=== PATIENT | female | born 1960 | race American Indian/Alaskan Native ===

== ENCOUNTER 2016-05-09 20:23 | Emergency (ER) | payer MEDICARE ==
[2016-05-09 21:21] VITALS: BP 129/77
[2016-05-09 23:19] LABS: Bacteria,Urine 1+ /HPF (Negative); Bilirubin,Urine NEG (Negative); Blood,Urine SM (Negative); Ketones,Urine NEG (Negative); Leukocyte Esterase,Urine NEG (Negative); Nitrite,Urine NEG (Negative); Protein,Urine <15 mg/dL mg/dL (Negative); Urobilinogen,Urine < 2.0 mg/dL (<2.0)
[2016-05-09 23:22] LABS: WBC,Urine < 1.0 /HPF (0.0-6.0)
--- NOTE | 2016-05-11 12:10 | ED Elopement Review ---
ED Pt Elopement review - Results review Lab results: Laboratory Tests 05/09/16 22:37 Urine Color Straw Urine Turbidity Clear Urine pH 6.0 Ur Specific [place] 1.003 Urine Protein <15 mg/dl Urine Glucose (UA) Neg Urine Ketones Neg Urine Blood Sm Urine Nitrite Neg Urine Bilirubin Neg Urine Urobilinogen < 2.0 Ur Leukocyte Esterase Neg Urine WBC (Auto) < 1.0 Urine RBC (Auto) 1.0 Urine Bacteria (Auto) 1+ - Call Back decision Pt Call Back Decision: No action required
== END 2016-05-09 22:47 | disposition left against medical advice (07) ==
LOC: ED 20:23
DX: R10.30 Lower abdominal pain, unspecified (principal); R19.7 Diarrhea, unspecified; M79.89 Other specified soft tissue disorders; Z53.21 Procedure and treatment not carried out due to patient leaving prior to being seen by health care provider
CPT/HCPCS: 81001

== ENCOUNTER 2018-10-16 19:07 | Emergency (ER) | payer MEDICARE ==
[2018-10-16] MEDS ORDERED: SOLU-Medrol IV ONE (19:25)
--- NOTE | 2018-10-16 19:42 | Emergency Department Report ---
HPI - General Chief Complaint: Allergic Reaction Time Seen by Provider: 10/16/18 19:24 - HPI HPI: Mrs. Candelario is a very pleasant 88-year-old female with history of hypertension who presents with upper lip swelling since yesterday evening. She takes lisin opril and amlodipine for blood pressure control. She denies tongue or throat swelling. Denies shortness of breath. Denies skin itching or hives. Gradual onset of symptoms and yesterday. Swelling has not changed in size. Swelling isolated to the upper lip. ED Past Medical Hx - Past Medical History Previous Medical History?: Yes Hx Hypertension: Yes Hx Diabetes: Yes - Surgical History Additional Surgical History: - Social History Smoking Status: Current Every Day Smoker Substance Use Type: None - Medications Home Medications: Home Medications Medication Instructions Recorded Confirmed Last Taken Type Lisinopril 10 mg PO DAILY 02/21/15 02/21/15 02/21/15 History Simvastatin (Nf) [Zocor TAB] 20 mg PO QHS 02/21/15 02/21/15 02/21/15 History metFORMIN [Glucophage] 500 mg PO BID 02/21/15 02/21/15 02/21/15 History Acetaminophen/Codeine [Tylenol #3] 1 tab PO Q6H PRN #14 tab 01/12/16 Unknown Rx ED Review of Systems ROS: Stated complaint: UPPER LIP SWOLLEN Other details as noted in HPI Comment: All other systems reviewed and negative Constitutional: denies: fever, malaise Respiratory: denies: cough Cardiovascular: denies: chest pain Physical Exam - Physical Exam General: General: Well-appearing, no acute distress HEENT: Normocephalic atraumatic pupils equal round and reactive to light a nicteric sclera Nose: no rhinorrhea Oropharynx: Edematous upper lip normal tongue size normal lower lip size Clear mucous membranes no lesions Neck: supple, no meningismus no swelling of the neck or submandibular region Chest: Clear to auscultation bilaterally no rales rhonchi no wheezes Cardiac: Regular rate and rhythm no murmurs no rubs no gallops Abdomen: Soft nontender nondistended positive bowel sounds no guarding Extremities: No cyanosis no clubbing no edema Neuro: Moves all extremities 4, no gross deficits Psychiatric: Alert and oriented 4 normal affect normal judgment normal insight ED Medical Decision Making - Medical Decision Making Mild isolated angioedema involving the upper lobe MAGED inhibitor induced. Mrs. Tuttle since 2 stopped taking lisinopril. I will increase her amlodipine dose from 2.5-5 mg for pressure control. She received 1 dose IV steroids in the ED. Discharged home in stable condition. Critical care attestation.: If time is entered above; I have spent that time in minutes in the direct care of this critically ill patient, excluding procedure time. ED Disposition Clinical Impression: MAGED inhibitor-aggravated angioedema Disposition: TO HOME OR SELFCARE Is pt being admited?: No Does the pt Need Aspirin: No Condition: Stable Instructions: Angioedema (ED) Additional Instructions: Please stop taking lisinopril. Any medication in this class of drugs will cause lip swelling.
[2018-10-16 20:37] VITALS: BP 111/63
== END 2018-10-16 20:37 | disposition home or self-care (01) ==
LOC: ED 19:07
DX: R22.0 Localized swelling, mass and lump, head (principal); T46.5X5A Adverse effect of other antihypertensive drugs, initial encounter; I10 Essential (primary) hypertension; E11.9 Type 2 diabetes mellitus without complications; F17.200 Nicotine dependence, unspecified, uncomplicated; Z88.6 Allergy status to analgesic agent; Z79.899 Other long term (current) drug therapy; X58.XXXA Exposure to other specified factors, initial encounter; Y93.89 Activity, other specified; Y92.89 Other specified places as the place of occurrence of the external cause; Y99.8 Other external cause status
CPT/HCPCS: 96374; 99282; J2930

== ENCOUNTER 2020-05-07 18:26 | Emergency (ER) | payer MEDICARE ==
[2020-05-07 19:39] VITALS: BP 139/86
[2020-05-07] MEDS ORDERED: IBUPROFEN 600 MG TAB PO ONE (22:44)
[2020-05-07] MEDS ORDERED: ONDANSETRON 4 MG ODT TAB PO ONE (22:44)
[2020-05-07] MEDS ORDERED: traMADol 50 MG TAB PO ONE (22:44)
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
== END 2020-05-08 00:05 | disposition home or self-care (01) ==
LOC: ED 18:26
DX: S93.401A Sprain of unspecified ligament of right ankle, initial encounter (principal); T23.101A Burn of first degree of right hand, unspecified site, initial encounter; I10 Essential (primary) hypertension; E11.9 Type 2 diabetes mellitus without complications; F17.200 Nicotine dependence, unspecified, uncomplicated; Z98.890 Other specified postprocedural states; Z79.84 Long term (current) use of oral hypoglycemic drugs; Z79.899 Other long term (current) drug therapy; Z88.8 Allergy status to other drugs, medicaments and biological substances; X50.1XXA Overexertion from prolonged static or awkward postures, initial encounter; Y93.89 Activity, other specified; Y92.89 Other specified places as the place of occurrence of the external cause; Y99.8 Other external cause status
CPT/HCPCS: 99282; Q0162

== ENCOUNTER 2020-10-14 19:13 | Emergency (ER) | payer MEDICARE ==
[2020-10-15] MEDS ORDERED: IBUPROFEN 600 MG TAB PO ONE (02:44)
[2020-10-15] MEDS ORDERED: ACETAMINOPHEN 500 MG TAB PO ONE (02:44)
--- NOTE | 2020-10-15 02:48 | Emergency Department Report ---
ED General Adult HPI - General Chief complaint: Dental/Oral Stated complaint: TOOTH PAIM/MOUTH SWELLING Time Seen by Provider: 10/15/20 02:36 Source: patient Mode of arrival: Ambulatory Limitations: No Limitations - History of Present Illness Initial comments: 60-year-old female patient with history of diabetes and hypertension presents to the emergency department with complaints of dental pain starting yesterday. No preceding fall, trauma, injury. Patient states she has not seen a dentist in several years. Took aspirin with limited relief. Pain is localized to the right upper molar. Denies fever, chills, sore throat, dysphagia, hoarseness, neck stiffness. Denies all other complaints at this time. Severity scale (0 -10): 3 - Related Data Home Medications Medication Instructions Recorded Confirmed Last Taken Lisinopril 10 mg PO DAILY 02/21/15 02/21/15 02/21/15 Simvastatin (Nf) [Zocor TAB] 20 mg PO QHS 02/21/15 02/21/15 02/21/15 metFORMIN [Glucophage] 500 mg PO BID 02/21/15 02/21/15 02/21/15 Previous Rx's Medication Instructions Recorded Last Taken Type Acetaminophen/Codeine [Tylenol #3] 1 tab PO Q6H PRN #14 tab 01/12/16 Unknown Rx amLODIPine 5 mg PO DAILY 30 Days #30 tab 10/16/18 Unknown Rx Naproxen 500 mg PO Q12H PRN #24 tablet 05/07/20 Unknown Rx Silver Sulfadiazine [Silvadene] 25 gm TP BID #1 cream..g. 05/07/20 Unknown Rx traMADoL [Ultram] 50 mg PO Q6HR PRN #12 tablet 05/07/20 Unknown Rx Naproxen 250 mg PO BID #20 tablet 10/15/20 Unknown Rx Nystas/Diphen/Xyl Visc/Mylanta 30 ml MM Q4H PRN #1 bottle 10/15/20 Unknown Rx [Magic Mouthwash] Penicillin Vk [Veetids TAB] 500 mg PO QID 7 Days tablet 10/15/20 Unknown Rx Allergies Allergy/AdvReac Type Severity Reaction Status Date / Time morphine AdvReac Itching Verified 02/21/15 11:48 ED Review of Systems ROS: Stated complaint: TOOTH PAIM/MOUTH SWELLING Other details as noted in HPI Other: GENERAL: Negative for fever. ENT: Positive for dental pain. CARDIOVASCULAR: Negative for chest pain. PULMONARY: Negative for shortness of breath. GASTROINTESTINAL: Negative for abdominal pain. MUSCULOSKELETAL: Negative for back pain. NEUROLOGICAL: Negative for headache. INTEGUMENTARY: Negative for rash. ED Past Medical Hx - Past Medical History Previous Medical History?: Yes Hx Hypertension: Yes Hx Diabetes: Yes Additional medical history: Hyperlipidemia - Surgical History Past Surgical History?: Yes Additional Surgical History: - Social History Smoking Status: Current Every Day Smoker Substance Use Type: None - Medications Home Medications: Home Medications Medication Instructions Recorded Confirmed Last Taken Type Lisinopril 10 mg PO DAILY 02/21/15 02/21/15 02/21/15 History Simvastatin (Nf) [Zocor TAB] 20 mg PO QHS 02/21/15 02/21/15 02/21/15 History metFORMIN [Glucophage] 500 mg PO BID 02/21/15 02/21/15 02/21/15 History Acetaminophen/Codeine [Tylenol #3] 1 tab PO Q6H PRN #14 tab 01/12/16 Unknown Rx amLODIPine 5 mg PO DAILY 30 Days #30 tab 10/16/18 Unknown Rx Naproxen 500 mg PO Q12H PRN #24 tablet 05/07/20 Unknown Rx Silver Sulfadiazine [Silvadene] 25 gm TP BID #1 cream..g. 05/07/20 Unknown Rx traMADoL [Ultram] 50 mg PO Q6HR PRN #12 tablet 05/07/20 Unknown Rx Naproxen 250 mg PO BID #20 tablet 10/15/20 Unknown Rx Nystas/Diphen/Xyl Visc/Mylanta 30 ml MM Q4H PRN #1 bottle 10/15/20 Unknown Rx [Magic Mouthwash] Penicillin Vk [Veetids TAB] 500 mg PO QID 7 Days tablet 10/15/20 Unknown Rx ED Physical Exam - General Limitations: No Limitations - Other Other exam information: General: Awake, appropriately interactive, no acute distress. Dental: Oral mucosa is moist. Tenderness to palpation along the right upper molar. The gingiva appear normal. No fluctuance or evidence of periapical abscess. Sublingual, submental, and submandibular spaces all soft, without edema. There is tenderness and minimal soft tissue swelling along the distribution of the right maxilla without evidence for maxillary or buccal space abscess. No trismus. Patient is speaking in full sentences and handling secretions without difficulty. Neck: Supple. Full range of motion intact. Cardiovascular: Normal peripheral perfusion. Pulmonary: No respiratory distress. Patient is speaking normally without use of accessory muscles. Skin: No apparent rashes or lesions. Neurological: No facial asymmetry. Speech is clear. Follows commands. Patient is alert and oriented. Musculoskeletal: Moves all four extremities spontaneously with normal range of motion. Psych: Cooperative. Appropriate mood and affect. ED Course Vital Signs 10/15/20 10/15/20 10/15/20 01:05 02:57 03:21 Temperature 98.6 F Pulse Rate 84 Respiratory 18 16 16 Rate Blood Pressure 156/84 [Left] O2 Sat by Pulse 100 Oximetry 10/15/20 03:22 Temperature 98 F Pulse Rate 78 Respiratory 19 Rate Blood Pressure 204/117 [Left] O2 Sat by Pulse 100 Oximetry ED Medical Decision Making - Medical Decision Making Differential diagnosis including but not limited to: dental abscess, Ruben's angina, necrotizing gingivitis, dental caries Patient presents to the emergency department with complaints of nontraumatic dental pain. Patient is afebrile, hemodynamically stable, no respiratory distress, tolerating oral intake without difficulty, handling secretions without difficulty. No clinical evidence to suggest airway obstruction or systemic bacterial infection warranting further diagnostic work-up on an emergent basis at this time. Patient will be discharged home with prophylactic antibiotics, appropriate analgesics, and referral to dentist for close outpatient follow-up. Patient expressed understanding and is agreeable to plan of care. Strict return precautions provided. Of note, patient's blood pressure was noted to be elevated in the emergency department. Patient has a prior history of hypertension. She has not yet taking her blood pressure medication this morning. Patient specifically denies chest pain, shortness of breath, palpitations, syncope, headache, vision changes. Neurological exam is nonfocal and remainder of vital signs are stable. No clinical indication for further diagnostic work-up and/or initiation of antihypertensive therapy at this time per ACEP asymptomatic hypertension guidelines. Patient was encouraged to follow-up with primary care provider for blood pressure recheck. Lifestyle modifications recommended. Reminded to take her scheduled blood pressure medications upon returning home. History, exam, diagnostic testing, and current condition do not suggest worrisome pathology to warrant further testing, continued ED treatment, admission, or surgical evaluation at this point. Given the low probability of a significant medical illness, it would be more likely to result in harm than benefit to perform further testing at this stage. Discussed findings, presumptive diagnosis, need for follow-up and specific signs/symptoms that should prompt immediate return to the emergency department. Instructions were explained in detail to the patient in addition to giving written discharge information. Patient expressed understanding and was given the opportunity to ask questions, all of which were satisfactorily answered prior to discharge home. Critical care attestation.: If time is entered above; I have spent that time in minutes in the direct care of this critically ill patient, excluding procedure time. ED Disposition Clinical Impression: Odontalgia, History of hypertension Disposition: TO HOME OR SELFCARE Is pt being admited?: No Does the pt Need Aspirin: No Condition: Stable Instructions: Diet and Dental Disease Additional Instructions: Take Tylenol every 4 hours as needed for pain. Take Naprosyn twice daily with food as needed for pain. Use Magic Mouthwash as needed for pain. Take Penicillin with food as directed. Continue blood pressure medications as previously prescribed. Reduce your dietary sodium intake. Exercise daily. Follow-up with dentist this week. Call Saturday to schedule an appointment. See referral information below. Return to the emergency department immediately for new or worsening symptoms. Prescriptions: Nystas/Diphen/Xyl Visc/Mylanta [Magic Mouthwash] 30 ml MM Q4H PRN #1 bottle PRN Reason: dental pain Naproxen 250 mg PO BID #20 tablet Penicillin Vk [Veetids TAB] 500 mg PO QID 7 Days tablet Referrals: [facility] [Outside] - 3-5 Days [facility] [Outside] - 3-5 Days Time of Disposition: 02:48
[2020-10-15 03:23] VITALS: BP 204/117
== END 2020-10-15 03:25 | disposition home or self-care (01) ==
LOC: ED 19:13
DX: K08.89 Other specified disorders of teeth and supporting structures (principal); I10 Essential (primary) hypertension; E11.9 Type 2 diabetes mellitus without complications; F17.200 Nicotine dependence, unspecified, uncomplicated; Z98.890 Other specified postprocedural states; Z79.899 Other long term (current) drug therapy; Z88.8 Allergy status to other drugs, medicaments and biological substances
CPT/HCPCS: 99282

== ENCOUNTER 2021-02-27 19:35 | Emergency (ER) | payer MEDICARE ==
[2021-02-27 20:40] VITALS: BP 137/72
[2021-02-27] MEDS ORDERED: ASPIRIN 325 MG TAB PO ONE (21:10)
[2021-02-27] MEDS ORDERED: ACETAMINOPHEN 500 MG TAB PO ONE (21:10)
--- NOTE | 2021-02-27 21:12 | Event Note ---
ED Screening Note Date of service: 02/27/21 Time: 21:10 ED Screening Note: Patient is a 60-year-old -Citizen Of [place] female with a history of hypertension, llg-xrndmjg-mechhvwmd diabetes, hyperlipidemia, chronic osteoarthritis and heavy tobacco abuse who presents to the ED with complaint of posterior neck pain that radiates to her left shoulder with a significant headache that radiates from the occipital area to the parietal scalp intermittently for the last 1 month, worse in the last 3 days. Patient states that the pain in the neck makes the headache worse with blurry vision and nausea. Patient denies diaphoresis, fall, traumatic injury, dizziness, syncope, numbness and tingling or weakness of upper extremities bilaterally, shortness of breath, chest pain, nausea and vomiting or abdominal pain, change in vision or cough. This initial assessment/diagnostic orders/clinical plan/treatment(s) is/are subject to change based on patients health status, clinical progression and re- assessment by fellow clinical providers in the ED. Further treatment and workup at subsequent clinical providers discretion. Patient/guardian urged not to elope from the ED as their condition may be serious if not clinically assessed and managed. Initial orders include: EKG, troponin, CBC, CMP, chest x-ray, head CT scan without contrast
[2021-02-27] MEDS ORDERED: LIDOCAINE (4%) 40 MG/ML TOPICAL SOLN 50 ML BOTTLE TP ONE (21:54)
[2021-02-27] MEDS ORDERED: METOCLOPRAMIDE 10 MG TAB PO ONE (21:54)
--- NOTE | 2021-02-27 21:58 | Emergency Department Report ---
ED General Adult HPI - General Chief complaint: Headache Stated complaint: The muscles in the back of my neck hurt PUI?: No Time Seen by Provider: 02/27/21 21:22 Source: patient, RN notes reviewed, old records reviewed Mode of arrival: Ambulatory Limitations: No Limitations - History of Present Illness Initial comments: The patient was evaluated in the emergency department for symptoms described in the history of present illness. He/she was evaluated in the context of the global COVID-19 pandemic, which necessitated consideration that the patient might be at risk for infection with the virus that causes COVID-19. Institutional protocols and algorithms that pertain to the evaluation of patients at risk for COVID-19 are in a state of rapid change based on information released by regulatory bodies including the CDC and federal and state organizations. These policies and algorithms were followed during the patient's care in the emergency department. Please note that these policies, procedures and recommendations changed on a rapid basis. The patient is a 60-year-old female, who is right-hand dominant. Patient has a past medical history of body mass index of 37.3, arthritis, chronic pain, diabetes, hypertension and high cholesterol. The patient presents to the ER today with a primary complaint of nontraumatic, acute on chronic trapezius, and posterior cervical muscular pain, associated with occipital pain. This type of pain has been present for months, but it got worse over the past couple weeks. The patient denies fever, loss of taste and smell, loss of visual acuity, ataxia, tinnitus, vertigo, chest pain, abdominal pain or shortness of breath. The patient denies recent motor vehicle accident, and recent chiropractic manipulation. She states her outpatient primary care doctor has started her on gabapentin for "nerve pain." She came in today because the pain is now getting a little bit worse, and occasionally moves to the left shoulder. She denies weakness, numbness, ataxia, bladder/bowel retention incontinence and saddle anesthesia. The patient reports chronic bilateral knee and ankle pain, has had some mechanical falls over the past few weeks. She currently ambulates with a cane. She has not participated in outpatient physical therapy. She lives at home with family, and does not have to concern herself navigating stairs. In the emergency room, she was medicated with Tylenol, Reglan, intranasal lidocaine, and had trigger point injection with bupivacaine in her bilateral t rapezius, which markedly improved her symptoms. -: Gradual, week(s), month(s) Location: head, neck Radiation: neck, extremity Quality: burning, aching Consistency: intermittent Improves with: rest Worsens with: movement - Related Data Home Medications Medication Instructions Recorded Confirmed Last Taken Lisinopril 10 mg PO DAILY 02/21/15 02/21/15 02/21/15 Simvastatin (Nf) [Zocor TAB] 20 mg PO QHS 02/21/15 02/21/15 02/21/15 metFORMIN [Glucophage] 500 mg PO BID 02/21/15 02/21/15 02/21/15 Previous Rx's Medication Instructions Recorded Last Taken Type amLODIPine 5 mg PO DAILY 30 Days #30 tab 10/16/18 Unknown Rx Silver Sulfadiazine [Silvadene] 25 gm TP BID #1 cream..g. 05/07/20 Unknown Rx Nystas/Diphen/Xyl Visc/Mylanta 30 ml MM Q4H PRN #1 bottle 10/15/20 Unknown Rx [Magic Mouthwash] Penicillin Vk [Veetids TAB] 500 mg PO QID 7 Days tablet 10/15/20 Unknown Rx Acetaminophen [Non-Aspirin Extra 500 mg PO Q6HR PRN #30 tablet 02/27/21 Unknown Rx Strength] Ibuprofen [Motrin] 600 mg PO Q8H PRN #30 tablet 02/27/21 Unknown Rx Metoclopramide [Reglan] 10 mg PO QID PRN #30 tablet 02/27/21 Unknown Rx Allergies Allergy/AdvReac Type Severity Reaction Status Date / Time lisinopril AdvReac Angioedema Verified 02/27/21 20:53 morphine AdvReac Itching Verified 02/21/15 11:48 ED Review of Systems ROS: Stated complaint: NECK/HEAD PAIN Other details as noted in HPI Constitutional: denies: fever, malaise, weakness Eyes: denies: eye discharge, vision change ENT: denies: epistaxis Respiratory: denies: cough Cardiovascular: denies: chest pain Gastrointestinal: denies: abdominal pain, nausea, vomiting, hematemesis, melena, hematochezia Genitourinary: denies: dysuria Musculoskeletal: back pain, arthralgia, myalgia Neurological: denies: headache, weakness, numbness, abnormal gait, vertigo Hematological/Lymphatic: denies: easy bleeding ED Past Medical Hx - Past Medical History Hx Hypertension: Yes Hx Diabetes: Yes Additional medical history: Hyperlipidemia - Surgical History Additional Surgical History: - Social History Smoking Status: Current Every Day Smoker Substance Use Type: None - Medications Home Medications: Home Medications Medication Instructions Recorded Confirmed Last Taken Type Lisinopril 10 mg PO DAILY 02/21/15 02/21/15 02/21/15 History Simvastatin (Nf) [Zocor TAB] 20 mg PO QHS 02/21/15 02/21/15 02/21/15 History metFORMIN [Glucophage] 500 mg PO BID 02/21/15 02/21/15 02/21/15 History amLODIPine 5 mg PO DAILY 30 Days #30 tab 10/16/18 Unknown Rx Silver Sulfadiazine [Silvadene] 25 gm TP BID #1 cream..g. 05/07/20 Unknown Rx Nystas/Diphen/Xyl Visc/Mylanta 30 ml MM Q4H PRN #1 bottle 10/15/20 Unknown Rx [Magic Mouthwash] Penicillin Vk [Veetids TAB] 500 mg PO QID 7 Days tablet 10/15/20 Unknown Rx Acetaminophen [Non-Aspirin Extra 500 mg PO Q6HR PRN #30 tablet 02/27/21 Unknown Rx Strength] Ibuprofen [Motrin] 600 mg PO Q8H PRN #30 tablet 02/27/21 Unknown Rx Metoclopramide [Reglan] 10 mg PO QID PRN #30 tablet 02/27/21 Unknown Rx ED Physical Exam - General Limitations: No Limitations General appearance: alert, in no apparent distress - Head Head exam: Present: atraumatic, normocephalic - Eye Eye exam: Present: normal appearance, PERRL, EOMI. Absent: nystagmus - ENT ENT exam: Present: normal exam, normal orophraynx, mucous membranes moist, TM's normal bilaterally, normal external ear exam - Neck Neck exam: Present: normal inspection, tenderness (There is reproducible bilateral posterior trapezius tenderness, and bilateral posterior paracervical muscular tenderness), full ROM. Absent: meningismus - Respiratory Respiratory exam: Present: normal lung sounds bilaterally. Absent: respiratory distress, wheezes, rales, rhonchi, stridor, decreased breath sounds - Cardiovascular Cardiovascular Exam: Present: regular rate, normal rhythm, normal heart sounds. Absent: bradycardia, tachycardia, irregular rhythm, systolic murmur, diastolic murmur, rubs, gallop - GI/Abdominal GI/Abdominal exam: Present: soft. Absent: distended, tenderness, guarding, rebound, rigid, pulsatile mass - Extremities Exam Extremities exam: Present: normal inspection, full ROM, other (2+ pulses noted in the bilateral upper and lower extremities. There is no palpable cord. negative Homans sign. Muscular compartments are soft. The pelvis is stable.). Absent: pedal edema, calf tenderness - Back Exam Back exam: Present: normal inspection, full ROM, muscle spasm, paraspinal tenderness. Absent: tenderness, CVA tenderness (R), CVA tenderness (L), vertebral tenderness - Neurological Exam Neurological exam: Present: alert (There is no past-pointing. There is no pronator drift. There is normal [id number]. Sensation is intact to light touch and proprioception in the bilateral upper and lower extremities), oriented X3, normal gait, reflexes normal (Downgoing plantar reflexes bilaterally. No clonus.), other (No facial droop. Tongue midline. Extraocular movements intact bilaterally. Facial sensation intact to light touch in V1, V2, V3 distribution bilaterally. 5 and a 5 strength in 4 extremities. Sensation intact to light touch in 4 extremities.). Absent: motor sensory deficit - Psychiatric Psychiatric exam: Present: normal affect, normal mood - Skin Skin exam: Present: warm, dry, intact, normal color. Absent: rash ED Course Vital Signs 02/27/21 20:35 Temperature 98.7 F Pulse Rate 82 Respiratory 20 Rate Blood Pressure 137/72 O2 Sat by Pulse 98 Oximetry - Procedure Description Procedures done: Patient provided verbal consent for trigger point injection with bupivacaine. After discussing risks, benefits alternatives of trigger point injection, patient provided verbal informed consent. The bilateral trapezii are cleansed with alcohol swabs, and typical aseptic fashion. Using a 25-gauge needle, 1 cc of 0.5% bupivacaine is injected into the right and left trapezius, and the bilateral trigger points of maximum pain and tenderness. The patient endorsed immediate relief of pain, and did not have any complications. ED Medical Decision Making - Lab Data Vital Signs 02/27/21 20:35 Temperature 98.7 F Pulse Rate 82 Respiratory 20 Rate Blood Pressure 137/72 O2 Sat by Pulse 98 Oximetry - EKG Data -: EKG Interpreted by Ma EKG shows normal: sinus rhythm Rate: normal - EKG Data 02/27/21 22:54 The EKG is interpreted at 21: 43 Sinus rhythm, 75 bpm. Left axis deviation, normal P wave axis, left ventricular hypertrophy. Minimal motion artifact. Abnormal EKG. Not a STEMI. Patient denies chest pain. - Radiology Data Radiology results: pending, report reviewed, image reviewed CT HEAD WITHOUT CONTRAST INDICATION / CLINICAL INFORMATION: Neck pain, headache. TECHNIQUE: All CT scans at this location are performed using CT dose reduction for ALARA by means of automated exposure control. COMPARISON: None available. FINDINGS: No acute intracranial hemorrhage. Ventricles are normal in size without midline shift or mass effect. No extra-axial fluid collection is seen. Burns-white matter differentiation appears normal. ADDITIONAL FINDINGS: None. IMPRESSION: 1. No acute intracranial abnormality. Signer Name: Scot Smallwood MD Signed: 02/27/2021 8:54 PM Workstation Name: [email or web address] CHEST 2 VIEWS INDICATION / CLINICAL INFORMATION: CHEST PAIN. COMPARISON: None available. FINDINGS: SUPPORT DEVICES: None. HEART / MEDIASTINUM: No significant abnormality. LUNGS / PLEURA: No significant pulmonary or pleural abnormality. No pneumothorax. ADDITIONAL FINDINGS: No significant additional findings. IMPRESSION: 1. No acute findings. Signer Name: Scot Smallwood MD Signed: 02/27/2021 8:52 PM Workstation Name: [email or web address] - Medical Decision Making Differential diagnosis, including but not limited to: Trapezius pain, paracervical muscular pain, chronic arthritis, occipital migraine Assessment and plan: 60-year-old female with a few months/weeks of bilateral trapezius, bilateral paracervical muscular pain, which is reproducible, and improved with trigger point injection. Patient states that the headache is not sudden or thunderclap in nature, not maximal in intensity, not the worst headache of her life. In addition, it had a gradual smoldering course over the past few weeks/months. The patient has 5 out of 5 strength in 4 extremities, ambulates with a cane with a steady gait, has appropriate reflexes, and sensation is intact to light touch and proprioception in the bilateral upper and lower extremities, and denies bladder/bowel retention incontinence and saddle anesthesia. Her history, physical, and examination are not suggestive of subarachnoid hemorrhage, stroke, or emergent epidural compression syndrome. She is counseled to follow-up with her outpatient primary care doctor, and we discussed the benefits of starting physical therapy. She articulated understanding. All questions answered. Return precautions are reviewed The patient had a noncontrast CT scan of the brain, x-ray the chest, and EKG ordered prior to my personal evaluation of her. No emergent findings were appreciated. Critical care attestation.: If time is entered above; I have spent that time in minutes in the direct care of this critically ill patient, excluding procedure time. ED Disposition Clinical Impression: Occipital headache, Trapezius strain Disposition: HOME / SELF CARE / HOMELESS Is pt being admited?: No Does the pt Need Aspirin: No Condition: Good Instructions: Occipital Neuralgia Additional Instructions: Rest, avoid heavy lifting, and strenuous physical activity. Alternate ice packs and heat packs as needed for physical pain. As we discussed, we suspect that the patient is having muscular/trigger point pain, from paracervical musculature, and trapezius muscles. The patient will likely benefit from initiation of physical therapy. The patient should follow-up with her primary care doctor, pain specialist, piano case maker, or spine physician (such as the spine physicians at [facility]) for initiation of outpatient physical therapy. We recommend follow- up within the next 5 to 7 days. The patient may also take the prescribed pain medications as needed for physical pain. When taking ibuprofen, make certain to take with food. Maximum daily dose of Tylenol/acetaminophen is 3 g per 24 hours. Please return to the emergency room right away with new pain, worsened pain, migration of pain, projectile vomiting, change in mental status, confusion, inability tolerate liquid feeds, extremity weakness, bladder or bowel retention incontinence or saddle anesthesia, new, worsened or different symptoms not present on the initial emergency room evaluation. Referrals: CATRACHO GARCIA MD [Staff Physician] - 3-5 Days [facility] [Provider Group] - 3-5 Days
[2021-02-27] MEDS ORDERED: BUPIVACAINE/PF (0.5%) 5 MG/1 ML 10 ML VIAL INFILTRATI NR (22:00)
--- NOTE | 2021-02-28 19:13 | Electrocardiograph Report ---
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
== END 2021-02-28 | disposition home or self-care (01) ==
LOC: ED 19:35
DX: S46.811A Strain of other muscles, fascia and tendons at shoulder and upper arm level, right arm, initial encounter (principal); S46.812A Strain of other muscles, fascia and tendons at shoulder and upper arm level, left arm, initial encounter; R51.9 Headache, unspecified; M54.2 Cervicalgia; I10 Essential (primary) hypertension; E11.9 Type 2 diabetes mellitus without complications; F17.200 Nicotine dependence, unspecified, uncomplicated; Z88.8 Allergy status to other drugs, medicaments and biological substances; Z88.5 Allergy status to narcotic agent; Z79.899 Other long term (current) drug therapy; X58.XXXA Exposure to other specified factors, initial encounter; Y93.89 Activity, other specified; Y92.89 Other specified places as the place of occurrence of the external cause; Y99.8 Other external cause status
CPT/HCPCS: 70450; 71046; 93005; 99284

== ENCOUNTER 2021-07-09 05:28 | Emergency (ER) | payer MEDICARE ==
[2021-07-09 05:31] VITALS: BP 152/84
--- NOTE | 2021-07-09 06:07 | Emergency Department Report ---
ED Fall HPI - General Chief Complaint: Fall Stated Complaint: RIGHT ARM PAIN Time Seen by Provider: 07/09/21 05:58 Source: patient, EMS Mode of arrival: Stretcher - History of Present Illness Initial Comments: Patient presents secondary right arm pain after a fall. She fell approximately 24 hours ago. She landed on the door for her laundry room. She states that over the last several hours her right arm has begun to hurt. She states that she has pain radiating from the right shoulder down her right arm. She did not hit her head that she can recall. There is no loss of consciousness. She believes that she fell onto her right side. She did not end up in the floor. She managed to stay on her feet but fell into the door. She did not get dizzy or lightheaded. Her only complaint right now is of right arm pain. The pain ranges from the shoulder all the way down to the hand and is worse with movement. It is a constant ache otherwise. She denies numbness or tingling in the extremity. There has been no chest pain or abdominal pain. She has no lower extremity pain. Left arm is unaffected. She did not take anything prior to arrival. - Related Data Home Medications Medication Instructions Recorded Confirmed Last Taken Lisinopril 10 mg PO DAILY 02/21/15 02/21/15 02/21/15 Simvastatin (Nf) [Zocor TAB] 20 mg PO QHS 02/21/15 02/21/15 02/21/15 metFORMIN [Glucophage] 500 mg PO BID 02/21/15 02/21/15 02/21/15 Previous Rx's Medication Instructions Recorded Last Taken Type amLODIPine 5 mg PO DAILY 30 Days #30 tab 10/16/18 Unknown Rx Silver Sulfadiazine [Silvadene] 25 gm TP BID #1 cream..g. 05/07/20 Unknown Rx Nystas/Diphen/Xyl Visc/Mylanta 30 ml MM Q4H PRN #1 bottle 10/15/20 Unknown Rx [Magic Mouthwash] Acetaminophen [Non-Aspirin Extra 500 mg PO Q6HR PRN #30 tablet 02/27/21 Unknown Rx Strength] Metoclopramide [Reglan] 10 mg PO QID PRN #30 tablet 02/27/21 Unknown Rx Ibuprofen [Motrin 600 MG tab] 600 mg PO Q8H PRN #30 tablet 07/09/21 Unknown Rx Allergies Allergy/AdvReac Type Severity Reaction Status Date / Time lisinopril AdvReac Angioedema Verified 02/27/21 20:53 morphine AdvReac Itching Verified 02/21/15 11:48 ED Review of Systems ROS: Stated complaint: RIGHT ARM PAIN Other details as noted in HPI Comment: All other systems reviewed and negative Constitutional: denies: fever Eyes: denies: vision change ENT: denies: throat pain Respiratory: denies: cough Cardiovascular: denies: chest pain Endocrine: denies: unexplained weight loss Gastrointestinal: denies: abdominal pain Genitourinary: denies: dysuria Musculoskeletal: as per HPI. denies: back pain Skin: denies: rash Neurological: denies: headache Hematological/Lymphatic: denies: easy bruising ED Past Medical Hx - Past Medical History Previous Medical History?: Yes Hx Hypertension: Yes Hx Diabetes: Yes Additional medical history: Hyperlipidemia - Surgical History Past Surgical History?: Yes Additional Surgical History: - Family History Family history: diabetes, hypertension - Social History Smoking Status: Current Every Day Smoker (We discussed tobacco cessation) Substance Use Type: None - Medications Home Medications: Home Medications Medication Instructions Recorded Confirmed Last Taken Type Lisinopril 10 mg PO DAILY 02/21/15 02/21/15 02/21/15 History Simvastatin (Nf) [Zocor TAB] 20 mg PO QHS 02/21/15 02/21/15 02/21/15 History metFORMIN [Glucophage] 500 mg PO BID 02/21/15 02/21/15 02/21/15 History amLODIPine 5 mg PO DAILY 30 Days #30 tab 10/16/18 Unknown Rx Silver Sulfadiazine [Silvadene] 25 gm TP BID #1 cream..g. 05/07/20 Unknown Rx Nystas/Diphen/Xyl Visc/Mylanta 30 ml MM Q4H PRN #1 bottle 10/15/20 Unknown Rx [Magic Mouthwash] Acetaminophen [Non-Aspirin Extra 500 mg PO Q6HR PRN #30 tablet 02/27/21 Unknown Rx Strength] Metoclopramide [Reglan] 10 mg PO QID PRN #30 tablet 02/27/21 Unknown Rx Ibuprofen [Motrin 600 MG tab] 600 mg PO Q8H PRN #30 tablet 07/09/21 Unknown Rx ED Physical Exam - General Limitations: No Limitations, Other (Pulse ox noted and normal) General appearance: alert, in no apparent distress - Head Head exam: Present: atraumatic, normocephalic, normal inspection - Eye Eye exam: Present: normal appearance, PERRL, EOMI. Absent: scleral icterus - ENT ENT exam: Present: normal orophraynx, normal external ear exam - Neck Neck exam: Present: normal inspection. Absent: tenderness, meningismus - Respiratory Respiratory exam: Present: normal lung sounds bilaterally. Absent: respiratory distress - Cardiovascular Cardiovascular Exam: Present: regular rate, normal rhythm - GI/Abdominal GI/Abdominal exam: Present: soft. Absent: tenderness - Extremities Exam Extremities exam: Present: normal capillary refill, other (Patient has diffuse tenderness with palpation over the right arm including the shoulder, humerus, elbow, forearm, and wrist. There is no deformity noted. Pulses are equal and symmetric. Cap refill is brisk. Sensation is intact.). Absent: calf tenderness - Back Exam Back exam: Absent: CVA tenderness (R), CVA tenderness (L), vertebral tenderness - Neurological Exam Neurological exam: Present: alert, oriented X3, CN II-XII intact, reflexes normal. Absent: motor sensory deficit - Psychiatric Psychiatric exam: Present: normal affect, normal mood - Skin Skin exam: Present: warm, dry ED Course Vital Signs 07/09/21 05:29 Temperature 98.1 F Pulse Rate 72 Respiratory 18 Rate Blood Pressure 152/84 [Left] O2 Sat by Pulse 99 Oximetry - Reevaluation(s) Reevaluation #1: 07/09/21 06:07 X-rays were ordered. Old records noted. Reevaluation #2: 07/09/21 06:50 Radiograph interpretations were noted and the patient was discharged. ED Medical Decision Making - Radiology Data Radiology results: report reviewed - Medical Decision Making Patient presented with right arm pain from a fall. She did not hit her head or lose consciousness based on her history. She does not have neurologic symptom or deficit. There is no spinal tenderness. I do not believe that CT or MR are indicated. There is no concern for cord injury based on her current presentation. Certainly, there is no suggestion of a subdural or epidural hematoma. She does not have any obvious radiographic evidence of fracture or dislocation involving the right arm. She was treated symptomatically. She has good pulses and warm skin. I do not believe there is a vascular injury. Critical Care Time: No Critical care attestation.: If time is entered above; I have spent that time in minutes in the direct care of this critically ill patient, excluding procedure time. ED Disposition Clinical Impression: Fall Qualifiers: Encounter type: initial encounter Qualified Code(s): W19.XXXA - Unspecified fall, initial encounter Injury of right lower arm Qualifiers: Encounter type: initial encounter Qualified Code(s): S59.911A - Unspecified injury of right forearm, initial encounter Injury of right upper arm Qualifiers: Encounter type: initial encounter Qualified Code(s): S49.91XA - Unspecified injury of right shoulder and upper arm, initial encounter Disposition: HOME / SELF CARE / HOMELESS Is pt being admited?: No Condition: Stable Instructions: How to Use a Shoulder Immobilizer Additional Instructions: Limit lifting. Apply ice for 2 days for your pain. After 2 days switch to heat. Drink plenty of fluids. Follow-up with your regular doctor or the referral doctor for recheck and further evaluation. Prescriptions: Ibuprofen [Motrin 600 MG tab] 600 mg PO Q8H PRN #30 tablet PRN Reason: Pain Referrals: PRIMARY MD JESSICA [Primary Care Provider] - 3-5 Days ROSALINDA YOUSSEF MD [Staff Physician] - 3-5 Days
--- NOTE | 2021-07-09 06:44 | XRay Report ---
RIGHT FOREARM 2 VIEW(S) INDICATION / CLINICAL INFORMATION: fall RT ARM PAIN COMPARISON: None available. FINDINGS: BONES / JOINT(S): No acute fracture or subluxation. No significant arthritis. SOFT TISSUES: No significant abnormality. ADDITIONAL FINDINGS: None. IMPRESSION: 1. No acute findings. No significant abnormality. Signer Name: Howie Garcia II, MD Signed: 07/09/2021 6:40 AM Workstation Name: [id number]
--- NOTE | 2021-07-09 06:46 | XRay Report ---
RIGHT HUMERUS 2 VIEW(S) INDICATION / CLINICAL INFORMATION: fall RT ARM PAIN COMPARISON: None available. FINDINGS: BONES / JOINT(S): No acute fracture or subluxation. No significant arthritis. SOFT TISSUES: No significant abnormality. ADDITIONAL FINDINGS: None. IMPRESSION: 1. No acute findings. Signer Name: Howie Garcia II, MD Signed: 07/09/2021 6:41 AM Workstation Name: [id number]
[2021-07-09] MEDS ORDERED: KETOROLAC 30 MG/1 ML INJ IM ONE (06:58)
== END 2021-07-09 07:59 | disposition home or self-care (01) ==
LOC: ED 05:28
DX: S59.911A Unspecified injury of right forearm, initial encounter (principal); S49.91XA Unspecified injury of right shoulder and upper arm, initial encounter; F17.200 Nicotine dependence, unspecified, uncomplicated; I10 Essential (primary) hypertension; Z88.5 Allergy status to narcotic agent; Z88.8 Allergy status to other drugs, medicaments and biological substances; E11.8 Type 2 diabetes mellitus with unspecified complications; W19.XXXA Unspecified fall, initial encounter; Y93.89 Activity, other specified; Y92.89 Other specified places as the place of occurrence of the external cause; Y99.8 Other external cause status
CPT/HCPCS: 73060; 73090; 96372; 99283; J1885